=== PATIENT | male | born 1975 | race Caucasian/White ===

== ENCOUNTER 2017-07-27 02:29 | Emergency (ER) | payer BC ==
[2017-07-27 02:38] VITALS: BP 138/95
[2017-07-27] MEDS ORDERED: Acetaminophen/oxyCODONE 325-5 MG Tab PO ONE (03:25)
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
== END 2017-07-27 03:55 | disposition home or self-care (01) ==
LOC: LL.ED 02:29
DX: S62.102A Fracture of unspecified carpal bone, left wrist, initial encounter for closed fracture (principal); G47.30 Sleep apnea, unspecified; W22.8XXA Striking against or struck by other objects, initial encounter
CPT/HCPCS: 29125; 73130; 99283; A9270

== ENCOUNTER 2017-08-11 05:14 | Emergency (ER) | payer BC ==
[2017-08-11 05:36] VITALS: BP 125/78
[2017-08-11] MEDS ORDERED: cefTRIAXone 1 GM Vial IM ONE (05:57)
[2017-08-11] MEDS ORDERED: Cephalexin 250 MG Cap PO ONE (05:57)
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
[2017-08-11] MEDS ORDERED: HYDROmorphone 1 MG/ML Syringe IVPUSH ONE (06:03)
[2017-08-11] MEDS ORDERED: Sodium Chloride 0.9% 1,000 ML IV ONE (06:04)
== END 2017-08-11 06:40 | disposition home or self-care (01) ==
LOC: LL.ED 05:14
DX: L03.114 Cellulitis of left upper limb (principal)
CPT/HCPCS: 87070; 96372; 99283; A9270; J0696; 87077; 87186

== ENCOUNTER 2021-10-12 08:16 | Emergency (ER) | payer BC ==
[2021-10-12 08:27] VITALS: BP 135/87; PULSE 77
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
== END 2021-10-12 10:30 | disposition home or self-care (01) ==
LOC: LL.ED 08:16
DX: J18.9 Pneumonia, unspecified organism (principal); Z20.822 Contact with and (suspected) exposure to COVID-19
CPT/HCPCS: 71046; 87804; 99285-25; U0002

== ENCOUNTER 2022-04-16 12:53 | Emergency (ER) | payer BC, MEDICAID ==
[2022-04-16 12:59] VITALS: BP 138/85; PULSE 75
[2022-04-16] MEDS: Lidocaine 1% 5 ML VIAL INJECT ONE (13:58)
[2022-04-16] MEDS: Bacitracin Oint 1 GM U/D Packet TOP ONE (14:11)
== END 2022-04-16 15:00 | disposition home or self-care (01) ==
LOC: LL.ED 12:53
DX: S61.412A Laceration without foreign body of left hand, initial encounter (principal); X58.XXXA Exposure to other specified factors, initial encounter
CPT/HCPCS: 12001; 99282; 99283

== ENCOUNTER 2022-06-05 12:15 | Emergency (ER) | payer OTHER ==
[2022-06-05 12:29] VITALS: BP 148/92
[2022-06-05] MEDS ORDERED: Sodium Chloride 0.9% 10 ML Syringe FLUSH PRN (12:58)
[2022-06-05] MEDS ORDERED: Lactated Ringers 1,000 ML IV ONE (12:58)
[2022-06-05 13:44] LABS: ANION GAP 9.3 meq/L (7-15); CHLORIDE,CL 104 mmol/L (98-107); SODIUM,NA 140 mmol/L (136-145)
[2022-06-05 13:47] LABS: ESTIMATED GFR 87 mL/min (>=60)
[2022-06-05 14:00] LABS: RESPIRATORY SYNCYTIAL VIR NAA NEGATIVE (NEGATIVE)
[2022-06-05 14:03] LABS: CORONAVIRUS COVID-19 NAA POSITIVE (NEGATIVE)
[2022-06-05 15:29] VITALS: PULSE 69
== END 2022-06-05 15:02 | disposition home or self-care (01) ==
LOC: LL.ED 12:15
DX: U07.1 COVID-19 (principal)
CPT/HCPCS: 0241U; 36415; 71046; 80053; 83605; 83735; 85025; 86140; 99283; 99284; J7120

== ENCOUNTER 2025-10-09 22:28 | Emergency (ER) | payer OTHER ==
[2025-10-09] MEDS: Take Home: Acetaminophen/HYDROcodone 325-10 MG, 5 Tab Pack PO ONE (23:17)
[2025-10-09 23:59] VITALS: BP 119/77; PULSE 109
[2025-10-10] MEDS: Ketorolac 15 MG/ML SDV IVPUSH ONE (00:04)
[2025-10-10] MEDS: Sodium Chloride 0.9% 10 ML Syringe FLUSH PRN (00:05)
== END 2025-10-10 00:25 | disposition home or self-care (01) ==
LOC: LL.ED 22:28
DX: S82.54XA Nondisplaced fracture of medial malleolus of right tibia, initial encounter for closed fracture (principal); Y04.8XXA Assault by other bodily force, initial encounter
CPT/HCPCS: 29515; 73610-RT; 96374; 96375; 96376; 99283; 99283-25; A9270-GY; J1171; J1885